=== PATIENT | male | born 1990 | race Hispanic/Latino ===

== ENCOUNTER 2022-12-18 17:10 | Emergency (ER) | payer SELFPAY ==
[2022-12-18 17:18] VITALS: BP 128/89
[2022-12-18 17:31] VITALS: BP 122/89
== END 2022-12-18 17:52 | disposition home or self-care (01) | DRG 605 ==
LOC: ED 17:10
DX: S70.372A Other superficial bite of left thigh, initial encounter (principal); W54.0XXA Bitten by dog, initial encounter; Y92.009 Unspecified place in unspecified non-institutional (private) residence as the place of occurrence of the external cause